=== PATIENT | female | born 1975 | race Caucasian/White ===

== ENCOUNTER 2021-05-31 16:59 | Emergency (ER) | payer OTHER ==
[~2021-05-31] VITALS: Ht 167.6 cm; Wt 81.7 kg
[~2021-05-31 16:59] MED LIST: ALBU90I INH; AMIT25 PO; AMOX500 PO; Ativan1 MG PO; BISM300CH PO; CLAR500 PO; CYCL10 PO; DEXL60CA3 PO; DICY20 PO; DULO60 PO; FLUO20 PO; GABA300 PO; HYDACE5 PO; HYDACE5325 PO; HYDMOR2 PO; HYDMOR4 PO; IBUP800 PO; METO5A PO; METR250 PO; METR500 PO; OMEP20ER PO; OMEP40CA12 PO; ONDA4 PO; ONDA4ODT MM; OXYACE5T PO; OXYC5 PO; PANT40 PO; PROC10 PO; PROM25 PO; PROM25S PR; RANI150 PO; RXONDA4ODT MM; RXPROM25 PO; RXPROM25S PR; RXTRAM50 PO; SPRINTEC BIRTH CONTR; SUCR1 PO; SULTRIDS PO; TETR250 PO; TRAACE PO; TRAM50 PO; VICODIN 5-3001 EACH PO
== END 2021-05-31 18:42 | disposition home or self-care (01) ==
LOC: ER 16:59
DX: M54.50 Low back pain, unspecified (principal); G89.29 Other chronic pain; M25.552 Pain in left hip; F17.200 Nicotine dependence, unspecified, uncomplicated; Z88.5 Allergy status to narcotic agent; Z88.6 Allergy status to analgesic agent; Z79.899 Other long term (current) drug therapy
CPT/HCPCS: 73502; 99283-25

== ENCOUNTER 2022-04-07 15:20 | Emergency (ER) | payer OTHER ==
[~2022-04-07] VITALS: Ht 167.6 cm; Wt 86.2 kg
[2022-04-07] MEDS ORDERED: Amoxicillin500 MG PO ×3 (15:30→15:32)
== END 2022-04-07 15:49 | disposition home or self-care (01) ==
LOC: ER 15:20
DX: K04.7 Periapical abscess without sinus (principal); Z88.5 Allergy status to narcotic agent; Z91.040 Latex allergy status; Z79.899 Other long term (current) drug therapy; F17.200 Nicotine dependence, unspecified, uncomplicated
CPT/HCPCS: 99282

== ENCOUNTER 2022-04-08 17:26 | Emergency (ER) | payer OTHER ==
[~2022-04-08] VITALS: Ht 167.6 cm; Wt 86.2 kg
[~2022-04-08 17:26] MED LIST changes: +Amoxicillin500 MG PO
== END 2022-04-08 19:00 | disposition home or self-care (01) ==
LOC: ER 17:26
DX: K08.89 Other specified disorders of teeth and supporting structures (principal); Z88.5 Allergy status to narcotic agent; Z91.040 Latex allergy status; Z79.899 Other long term (current) drug therapy; F17.210 Nicotine dependence, cigarettes, uncomplicated
CPT/HCPCS: 64400; 99282-25